=== PATIENT | female | born 1975 | race American Indian/Alaskan Native ===

== ENCOUNTER → 2018-11-10 07:35 | Emergency (ER) | payer MEDICAID, OTHER | END | disposition left against medical advice (07) | LOC: DL.ED 07:35 | DX: Z53.21 Procedure and treatment not carried out due to patient leaving prior to being seen by health care provider (principal) ==

== ENCOUNTER 2018-11-16 14:14 | Emergency (ER) | payer MEDICAID, OTHER ==
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
[2018-11-16 15:57] LABS: ANION GAP 14.8; CHLORIDE,CL 105 mmol/L (101-111); SODIUM,NA 137 mmol/L (135-145)
[2018-11-16] MEDS ORDERED: Acetaminophen 500 MG Tab PO ONE (16:03)
== END 2018-11-16 16:43 | disposition home or self-care (01) ==
LOC: DL.ED 14:14
DX: S00.11XA Contusion of right eyelid and periocular area, initial encounter (principal); S00.531A Contusion of lip, initial encounter; S40.012A Contusion of left shoulder, initial encounter; R07.89 Other chest pain; I10 Essential (primary) hypertension; Y04.2XXA Assault by strike against or bumped into by another person, initial encounter
CPT/HCPCS: 36415; 70486; 71101; 80053; 81001; 85025; 87086; 99284; A9270

== ENCOUNTER 2022-05-27 22:21 | Emergency (ER) | payer MEDICAID ==
[2022-05-27] MEDS ORDERED: Sodium Chloride 0.9% 1,000 ML IV ONE (22:51)
[2022-05-27 23:24] LABS: ANION GAP 14.1 mEq/L (7-13)
[2022-05-28] MEDS ORDERED: Promethazine 25 MG/ML SDV IM ONE (00:06)
[2022-05-28] MEDS ORDERED: Butorphanol 2 MG/ML SDV IVPUSH ONE (00:06)
== END 2022-05-28 00:50 | disposition home or self-care (01) ==
LOC: DL.ED 22:21
DX: R51.9 Headache, unspecified (principal); I10 Essential (primary) hypertension; E11.9 Type 2 diabetes mellitus without complications; Z88.1 Allergy status to other antibiotic agents; Z88.8 Allergy status to other drugs, medicaments and biological substances; Z79.899 Other long term (current) drug therapy; Z79.4 Long term (current) use of insulin; Z79.84 Long term (current) use of oral hypoglycemic drugs
CPT/HCPCS: 36415; 70450; 70486; 80053; 85025; 96361; 96372; 96374; 99284-25; J0595; J2550; J7030

== ENCOUNTER 2022-10-28 09:50 | Emergency (ER) | payer MEDICAID ==
[2022-10-28] MEDS ORDERED: Sodium Chloride 0.9% 10 ML Syringe FLUSH PRN (10:06)
[2022-10-28] MEDS ORDERED: Ondansetron 4 MG/2 ML SDV IV ONE ×2 (10:07→10:51)
[2022-10-28] MEDS ORDERED: Sodium Chloride 0.9% 1,000 ML IV ONE ×2 (10:07→10:51)
[2022-10-28] MEDS ORDERED: Famotidine 20 MG/2 ML SDV IVPUSH ONE (10:07)
[2022-10-28 10:42] LABS: ANION GAP 15.4 mEq/L (7-13)
[2022-10-28] MEDS ORDERED: cefTRIAXone 2 GM Vial IVPUSH ONE (10:51)
[2022-10-28] MEDS ORDERED: HYDROmorphone 1 MG/ML Syringe IVPUSH ONE (11:45)
[2022-10-28] MEDS ORDERED: Promethazine 25 MG/ML SDV IM ONE (11:45)
== END 2022-10-28 13:19 ==
LOC: DL.ED 09:50
DX: K80.00 Calculus of gallbladder with acute cholecystitis without obstruction (principal); N39.0 Urinary tract infection, site not specified; L89.150 Pressure ulcer of sacral region, unstageable; E78.00 Pure hypercholesterolemia, unspecified; I10 Essential (primary) hypertension; E11.40 Type 2 diabetes mellitus with diabetic neuropathy, unspecified; E66.9 Obesity, unspecified; Z68.34 Body mass index [BMI] 34.0-34.9, adult; Z88.5 Allergy status to narcotic agent; Z88.8 Allergy status to other drugs, medicaments and biological substances; Z79.4 Long term (current) use of insulin; Z79.899 Other long term (current) drug therapy
CPT/HCPCS: 36415; 74176; 80053; 81001; 81025; 82150; 83605; 83690; 85025; 87086; 87088; 87186; 96361; 96372; 96374; 96375; 96376; 99284; 99285-25; J0696; J1170; J2405; J2550; J3490; J7030

== ENCOUNTER 2022-11-14 02:44 | Emergency (ER) | payer MEDICAID ==
[2022-11-14] MEDS ORDERED: Sodium Chloride 0.9% 1,000 ML IV ONE (02:49)
[2022-11-14] MEDS ORDERED: Ondansetron 4 MG/2 ML SDV IVPUSH ONE (02:50)
[2022-11-14] MEDS ORDERED: Pantoprazole 40 MG Vial IVPUSH ONE (02:50)
[2022-11-14 03:43] LABS: AMPHETAMINES,URINE NEGATIVE (NEGATIVE); BARBITURATES,URINE NEGATIVE (NEGATIVE); BENZODIAZEPINE,URINE NEGATIVE (NEGATIVE); MDMA (ECSTASY), URINE NEGATIVE (NEGATIVE); METHADONE,URINE NEGATIVE (NEGATIVE); METHAMPHETAMINES,URINE NEGATIVE (NEGATIVE); OPIATES,URINE NEGATIVE (NEGATIVE); OXYCODONE,URINE POSITIVE (NEGATIVE); PHENCYCLIDINE,URINE NEGATIVE (NEGATIVE); TCA,URINE NEGATIVE (NEGATIVE)
[2022-11-14 03:47] LABS: ANION GAP 15.5 mEq/L (7-13)
[2022-11-14 03:53] LABS: CORONAVIRUS COVID-19 NAA NEGATIVE (NEGATIVE)
== END 2022-11-14 04:30 | disposition home or self-care (01) ==
LOC: DL.ED 02:44
DX: R10.11 Right upper quadrant pain (principal); R11.2 Nausea with vomiting, unspecified; E78.00 Pure hypercholesterolemia, unspecified; I10 Essential (primary) hypertension; E11.40 Type 2 diabetes mellitus with diabetic neuropathy, unspecified; Z87.891 Personal history of nicotine dependence; E66.9 Obesity, unspecified; Z68.33 Body mass index [BMI] 33.0-33.9, adult; Z88.5 Allergy status to narcotic agent; Z88.8 Allergy status to other drugs, medicaments and biological substances; Z79.4 Long term (current) use of insulin; Z79.899 Other long term (current) drug therapy; Z20.822 Contact with and (suspected) exposure to COVID-19
CPT/HCPCS: 0240U; 36415; 80053; 80305-QW; 81001; 81025; 82150; 83605; 83690; 83735; 85025; 87040; 87086; 87088; 87186; 96361; 96374; 96375; 99283; 99284-25; C9113; J2405; J7030

== ENCOUNTER 2022-11-15 21:45 | Emergency (ER) | payer MEDICAID ==
[2022-11-15 22:36] LABS: ANION GAP 17.8 mEq/L (7-13); CHLORIDE,CL 102 mmol/L (98-107); SODIUM,NA 139 mmol/L (136-145)
[2022-11-15 22:47] LABS: ACETAMINOPHEN 0 ug/mL (10-30 (Therapeutic)); ESTIMATED GFR 58 mL/min (>=60)
[2022-11-15] MEDS ORDERED: Sodium Chloride 0.9% 1,000 ML IV ONE (22:51)
[2022-11-15] MEDS ORDERED: HYDROmorphone 0.5 MG/0.5 ML Syringe IVPUSH ONE (22:52)
== END 2022-11-16 01:01 | disposition home or self-care (01) ==
LOC: DL.ED 21:45
DX: R10.11 Right upper quadrant pain (principal); R10.13 Epigastric pain; R11.2 Nausea with vomiting, unspecified; E78.00 Pure hypercholesterolemia, unspecified; I10 Essential (primary) hypertension; E11.40 Type 2 diabetes mellitus with diabetic neuropathy, unspecified; E66.9 Obesity, unspecified; Z68.33 Body mass index [BMI] 33.0-33.9, adult; Z88.5 Allergy status to narcotic agent; Z88.8 Allergy status to other drugs, medicaments and biological substances; Z79.4 Long term (current) use of insulin; Z79.899 Other long term (current) drug therapy
CPT/HCPCS: 36415; 80053; 80143; 80179; 80307; 82150; 83605; 83690; 85025; 96361; 96374; 99283; 99284; J1170; J7030

== ENCOUNTER 2022-11-16 17:30 | Emergency (ER) | payer MEDICAID ==
[2022-11-16 20:35] LABS: ANION GAP 19.3 mEq/L (7-13)
[2022-11-16] MEDS ORDERED: Iopamidol 612 MG/ML 100 ML Bottle IVPUSH ONE (20:59)
[2022-11-16] MEDS ORDERED: Sodium Chloride 0.9% 1,000 ML IV ONE (20:59)
[2022-11-16] MEDS ORDERED: Metoclopramide 10 MG/2 ML SDV IVPUSH ONE (21:23)
[2022-11-17] MEDS ORDERED: Piperacillin/Tazobactam 3.375 GM in Sodium Chloride 0.9% 100 ML IV ONE (01:32)
[2022-11-17] MEDS ORDERED: Metoclopramide 10 MG/2 ML SDV IVPUSH ONE (02:24)
[2022-11-17] MEDS ORDERED: HYDROmorphone 0.5 MG/0.5 ML Syringe IVPUSH ONE (02:28)
== END 2022-11-17 03:05 ==
LOC: DL.ED 17:30
DX: K81.0 Acute cholecystitis (principal); E78.00 Pure hypercholesterolemia, unspecified; I10 Essential (primary) hypertension; K21.9 Gastro-esophageal reflux disease without esophagitis; E11.40 Type 2 diabetes mellitus with diabetic neuropathy, unspecified; E66.9 Obesity, unspecified; Z86.16 Personal history of COVID-19; Z88.5 Allergy status to narcotic agent; Z88.8 Allergy status to other drugs, medicaments and biological substances; Z79.4 Long term (current) use of insulin; Z79.899 Other long term (current) drug therapy; Z68.32 Body mass index [BMI] 32.0-32.9, adult
CPT/HCPCS: 36415; 74177; 80053; 83605; 85025; 96361; 96374; 96375; 96376; 99284; 99285; J1170; J2543; J2765; J7030; J7050; Q9967